=== PATIENT | female | born 1985 | race Caucasian/White ===

== ENCOUNTER 2022-10-30 14:09 | Observation (INO) ==
[2022-10-30 16:08] LABS: ABS Lymphocytes 0.2 10^3/uL (1.0-4.8); ABS Monocytes 0.1 10^3/uL (0.0-0.9); ABS Neutrophils 2.2 10^3/uL (1.5-7.6); ABS Nucleated RBC 0.01 10^3/ul; Hematocrit 36.5 % (35-45); Hemoglobin 12.1 g/dL (11.5-14.3); Lymphocyte % 7.2 %; Mean Corpuscular Hemoglobin 27.9 pg (27-33); Mean Corpuscular Hgb Conc 33.3 g/dL (31-36); Mean Corpuscular Volume 83.8 fL (80-97); Mean Platelet Volume 7.7 fL (7.5-11.2); Nucleated Red Blood Cells % 0.4 /100 WBC (0.0-0.4); Platelet Count 152 10^3/uL (150-450); Red Blood Count 4.35 10^6/uL (3.63-4.92); Red Cell Distribution Width 14.5 % (12-17); White Blood Count 2.5 10^3/uL (3.8-11.8)
[2022-10-30 16:43] LABS: Albumin 3.8 g/dL (3.2-5.2); Albumin/Globulin Ratio 1.4 (1-3); C Reactive Protein 19.15 mg/L (<8.01); Calcium 7.6 mg/dL (8.6-10.3); Creatinine, Serum 0.43 mg/dL (0.51-0.95); Globulin 2.7 g/dL (2-4); Potassium 3.8 mmol/L (3.5-5.0); Total Bilirubin 0.4 mg/dL (0.2-1.0); Total Protein 6.5 g/dL (6.4-8.9); eGFR CKD-EPI 129.2 (>60)
[2022-10-30 16:58] LABS: Activated Partial Thrombo Time 28.7 seconds (26.0-38.0); INR 1.37 (0.88-1.18)
[2022-10-30 17:36] LABS: High Sensitivity Troponin 1 Hr 7 pg/mL (<15)
[2022-10-30] MEDS ORDERED: Iohexol 350 (CONTRAST) 500 ML MDV IV ONE (17:46)
[2022-10-30] MEDS ORDERED: Lactated Ringers 1000 ml BAG 1,000 ML IV ONE ×2 (18:05)
[2022-10-30] MEDS ORDERED: Metoclopramide 5 MG/ML VIAL (10 mg) IV ONE (18:30)
[2022-10-30 18:59] LABS: Urine Appearance Clear; Urine Bilirubin Negative (Negative); Urine Blood Negative (Negative); Urine Color Yellow; Urine Glucose Negative (Negative); Urine Ketones 1+ (Negative); Urine Nitrite Negative (Negative); Urine Protein Negative (Negative); Urine Specific Gravity 1.029 (1.002-1.030); Urine Urobilinogen Negative (Negative)
[2022-10-30] MEDS ORDERED: Piperacillin/Tazobac ADVAN 3.375 GM in NS 0.9% 100 ml BAG 100 ML IV ONE (19:09)
[2022-10-30] MEDS ORDERED: Zosyn per Pharmacy NOTE FOLLOW UP SCH (22:00)
[2022-10-31] MEDS: ZOSYN 3.375 GM Q8H per EXTENDED INFUSION IV SCH ×3 (00:38→17:40)
[2022-10-31] MEDS: Lactated Ringers 1000 ml BAG 1,000 ML IV SCH ×3 (00:38→20:49)
[2022-10-31 00:58] LABS: Urine Appearance Cloudy; Urine Bilirubin Negative (Negative); Urine Blood Negative (Negative); Urine Color Yellow; Urine Glucose Negative (Negative); Urine Ketones Trace (Negative); Urine Nitrite Negative (Negative); Urine Protein Negative (Negative); Urine Specific Gravity 1.026 (1.002-1.030); Urine Urobilinogen Negative (Negative)
[2022-10-31] MEDS: Enoxaparin 40 MG/0.4 ML SYR SUBCUT SCH (06:29)
[2022-11-01] MEDS: ZOSYN 3.375 GM Q8H per EXTENDED INFUSION IV SCH ×2 (00:44→08:00)
[2022-11-01] MEDS: Lactated Ringers 1000 ml BAG 1,000 ML IV SCH ×2 (05:28→17:06)
[2022-11-01] MEDS: Enoxaparin 40 MG/0.4 ML SYR SUBCUT SCH (05:29)
[2022-11-01 09:23] LABS: Hematocrit 34.6 % (35-45); Hemoglobin 11.4 g/dL (11.5-14.3); Mean Corpuscular Hemoglobin 28.2 pg (27-33); Mean Corpuscular Hgb Conc 32.9 g/dL (31-36); Mean Corpuscular Volume 85.8 fL (80-97); Mean Platelet Volume 8.3 fL (7.5-11.2); Platelet Count 137 10^3/uL (150-450); Red Blood Count 4.04 10^6/uL (3.63-4.92); Red Cell Distribution Width 14.7 % (12-17); White Blood Count 1.8 10^3/uL (3.8-11.8)
[2022-11-01 09:30] LABS: ABS Eosinophils 0.1 10^3/uL (0.0-0.5); ABS Lymphocytes 0.7 10^3/uL (1.0-4.8); ABS Monocytes 0.3 10^3/uL (0.0-0.9); ABS Neutrophils 0.7 10^3/uL (1.5-7.6); Eosinophil % 3.8 %; Lymphocyte % 36.3 %; Nucleated Red Blood Cells % 0.2 /100 WBC (0.0-0.4)
[2022-11-01 10:00] LABS: Calcium 8.1 mg/dL (8.6-10.3); Creatinine, Serum 0.45 mg/dL (0.51-0.95); Potassium 3.5 mmol/L (3.5-5.0); eGFR CKD-EPI 127.8 (>60)
[2022-11-01] MEDS: Cefepime 2 GM in Dextrose 2 GM/50 ML BAG IV SCH ×2 (12:59→20:13)
[2022-11-01] MEDS: metroNIDAZOLE IV 500 MG/100ML 500 MG/100 ML BAG IVPB SCH ×2 (17:13→23:20)
[2022-11-02] MEDS ORDERED: Ondansetron 4 mg VIAL 2 MG/ML 2 ml VIAL IV PRN (01:37)
[2022-11-02] MEDS: Cefepime 2 GM in Dextrose 2 GM/50 ML BAG IV SCH ×2 (03:13→12:22)
[2022-11-02] MEDS: Lactated Ringers 1000 ml BAG 1,000 ML IV SCH (03:13)
[2022-11-02] MEDS: Enoxaparin 40 MG/0.4 ML SYR SUBCUT SCH (05:15)
[2022-11-02] MEDS: metroNIDAZOLE IV 500 MG/100ML 500 MG/100 ML BAG IVPB SCH ×2 (05:15→14:48)
[2022-11-02 08:18] LABS: ABS Eosinophils 0.1 10^3/uL (0.0-0.5); ABS Lymphocytes 0.8 10^3/uL (1.0-4.8); ABS Monocytes 0.3 10^3/uL (0.0-0.9); ABS Neutrophils 1.1 10^3/uL (1.5-7.6); ABS Nucleated RBC 0.01 10^3/ul; Eosinophil % 2.7 %; Hematocrit 30.5 % (35-45); Hemoglobin 10.4 g/dL (11.5-14.3); Lymphocyte % 35.8 %; Mean Corpuscular Hemoglobin 28.1 pg (27-33); Mean Corpuscular Volume 82.5 fL (80-97); Mean Platelet Volume 8.5 fL (7.5-11.2); Nucleated Red Blood Cells % 0.5 /100 WBC (0.0-0.4); Platelet Count 109 10^3/uL (150-450); Red Cell Distribution Width 15.2 % (12-17); White Blood Count 2.3 10^3/uL (3.8-11.8)
[2022-11-02 09:01] LABS: Calcium 7.9 mg/dL (8.6-10.3); Creatinine, Serum 0.41 mg/dL (0.51-0.95); Potassium 3.6 mmol/L (3.5-5.0); eGFR CKD-EPI 130.7 (>60)
[2022-11-02 15:03] VITALS: BP 131/79
[2022-11-03 17:05] LABS: Anaplasma phagocytophilum Negative (Negative); B. miyamotoi PCR, B Negative (Negative); Babesia divergens/MO-1 Negative (Negative); Babesia ducani Negative (Negative); Ehrlichia chaffeensis Negative (Negative); Ehrlichia ewingii/canis Negative (Negative); Ehrlichia muris eauclairensis Negative (Negative)
== END 2022-11-02 16:35 | disposition short-term general hospital (02) ==
LOC: ED 14:09 → EDHOLD 14:09 → OBSVTOIN 19:51 → SUATTDRO 19:51 → INTOOBSV 10-31 07:18 → EDHOLD 10-31 07:20 → MEDTELE 10-31 14:54
PROVIDERS: ADMIT Hospitalist; ATTEND Hospitalist